=== PATIENT | female | born 1955 | race Caucasian/White ===

== ENCOUNTER 2016-08-02 09:32 | Emergency (ER) | payer OTHER ==
[~2016-08-02] VITALS: Ht 160 cm; Wt 75.0 kg
[2016-08-02 09:38] VITALS: BP 116/84; PULSE 95; RESP 16; O2SAT 91
[2016-08-02] MEDS ORDERED: 0.9% Sodium Chloride 1,000 ML IV ONE (10:22)
--- NOTE | 2016-08-02 10:22 | ED.REPORT ---
HPI-General Illness Date of Service Aug 02, 2016 ED Provider: Christine King MD A 61 year old female presents to the ED complaining of pain in right side of back onset 1 week ago. The patient has had a UTI onset at the beginning of this month, and began taking antibiotics on the 8th. The patient has regularly been throwing up their prescribed antibiotics. 1 week ago, the patient started feeling pain in the right side of their back. Associated symptoms include recent fever (max 101.8), and intermittent nausea, headache described as feeling like a pressure, difficultly eating, and difficulty urinating. She did not take any antibiotics this morning. Recent UTI, statred taking anibitoics on the . Has not completley gone away, bt feels better. First Urine sample was cultured at [facility]. Patient was given Cipro, trhew it up, was then given amoxicillin and threw that up too. No Hx of problems with antibiotics. Nursing Notes Stated Complaint: POSS KIDNEY INFECTION Chief Complaint: Female Abdominal Pain Nursing Notes Reviewed: Yes Allergies: Coded Allergies: No Known Allergies (Verified , 08/02/16) Uncoded Allergies: No Known Allergies (Allergy, Unknown, 05/22/04) Scheduled PRN Ondansetron (Zofran) 4 Mg Tablet 4 MG PO Q4H PRN PRN For Nausea General Time Seen by MD: 10:21 Chief Complaint Other (Right lower back pain.) Hx Obtained From: Patient Arrived By: Walk-in Onset Occurred: 1 week ago Symptom Duration: Intermittent Recent Healthcare: Recent doctor visit Similar Sx Previous: No Past Medical History Past Medical History skin cancer (not melanoma) Review of Systems Pain in right side of back. Difficulty with urination. Difficulty with eating. Full Review of Systems Constitutional: Reports: Fever (101.8 max) GI: Reports: Nausea (intermittent) Neurologic: Reports: Headache (pressure in head. ) Complete sys rev & neg: except as marked. Physical Exam Vital Signs Vital Signs Date Time Temp Pulse Resp B/P Pulse Ox O2 Delivery O2 Flow Rate FiO2 08/02/16 13:07 36.7 69 16 112/73 98 Room Air 08/02/16 09:38 37.2 95 16 116/84 91 Room Air Initial VS: Reviewed Head / Eyes: Normocephalic, PERRL ENT: Mucous membranes moist Respiratory: Breath sounds normal, Clear to auscultation, No respiratory distress Cardiovascular: Regular rate & rhythm, Heart sounds normal, Intact distal pulses Abdomen / GI: Soft Extremities: No swelling Skin: Warm, Dry, No cyanosis Neurologic: Alert, Oriented, Nonfocal Right CVA tenderness. Interpretation & Diagnostics Interpretation & Diagnostics: no culture was done on urine collected earlier this month to help guide treatment Lab Results Interpretation Result Diagram: 08/02/16 1055 08/02/16 1055 Test 08/02/16 10:40 08/02/16 10:55 Urine Color Yellow (YELLOW) Urine Appearance Hazy (CLEAR,HAZY) Urine pH 6.0 (5.0-8.0) Urine Specific Bond 1.010 (1.003-1.035) Urine Protein 30mg/dL (NEG,TRACE) Urine Glucose (UA) Negativemg/dL (NEGATIVE) Urine Ketones Negativemg/dL (NEGATIVE) Urine Occult Blood Small (NEGATIVE) Urine Nitrite Negative (NEGATIVE) Urine Bilirubin Negative (NEGATIVE) Urine Urobilinogen Normalmg/dL (NORMAL) Urine Leukocyte Esterase Trace (NEGATIVE) Urine RBC 0-2/hpf (0-2) Urine WBC 11-50/hpf (0-5) Urine Epithelial Cells Occasional/hpf (NONE-MOD) Urine Crystals None seen (NONE SEEN) Urine Bacteria Moderate/hpf (NONE-FEW) Urine Hyaline Casts None/lpf (NONE) Urine Granular Casts Occasional (NONE SEEN) Urine Waxy Casts None seen (NONE SEEN) Urine Red Blood Cell Casts None seen (NONE SEEN) Urine White Blood Cell Casts None seen (NONE SEEN) Urine Mucus Present (None Seen) Urine Trichomonas None seen (NONE SEEN) Urine Yeast None (NONE SEEN) Urinalysis Comment None Urine Culture Reflexed Indicated Hold Urine Received (Received) White Blood Count 7.6th/mm3 (3.8-10.1) Red Blood Count 3.99mil/mm3 (3.90-5.20) Hemoglobin 12.9g/dL (12.0-15.6) Hematocrit 38.5% (35.0-46.0) Mean Corpuscular Volume 96.5fL (81-100) Mean Corpuscular Hemoglobin 32.3pg (27.0-35.0) Mean Corpuscular Hemoglobin Concent 33.5% (32.0-37.0) Red Cell Distribution Width 12.1% (12.3-15.4) Platelet Count 142bil/L (150-400) Neutrophils (%) (Auto) 75.5% (40-74) Lymphocytes (%) (Auto) 15.2% (14-46) Monocytes (%) (Auto) 8.4% (4-12) Eosinophils (%) (Auto) 0.1% (0-5) Basophils (%) (Auto) 0.1% (0-3) Sodium Level 131mEq/L (134-144) Potassium Level 3.9mEq/L (3.5-5.2) Chloride Level 95mEq/L (97-108) Carbon Dioxide Level 22mmol/L (18-29) Blood Urea Nitrogen 17mg/dL (6-24) Creatinine 0.79mg/dL (0.57-1.00) Estimat Glomerular Filtration Rate 107mL/min (>59) Glucose Level 118mg/dL (60-99) Lactic Acid Level 0.9mmol/L (0.4-2.0) Calcium Level 9.6mg/dL (8.5-10.1) Total Bilirubin 0.7mg/dL (0.0-1.2) Aspartate Amino Transf (AST/SGOT) 21U/L (0-50) Alanine Aminotransferase (ALT/SGPT) 19U/L (0-32) Alkaline Phosphatase 51U/L (25-165) Troponin T < 0.010ug/L (0.0-0.011) Pro-B-Type Natriuretic Peptide 160.9pg/mL (0-287) Total Protein 7.3g/dL (6.4-8.4) Albumin 3.6g/dL (3.4-5.0) Procalcitonin 0.33ng/mL (0.00-0.08) Re-Eval/Medical Decision Source of Hx: Old records Time of Eval: 12:19 Re-Evaluation/Progress Note: Rechecked patient, explained test results, diagnosis, and plan for discharge. Patient understands and agrees with the plan. Counseled Regarding: Diagnosis, Lab results, Need for follow-up, When/why to return to ED Discharge & Departure Primary Impression: Pyelonephritis Ruled Out: Sepsis Disposition: Home Discharge Condition All VS Reviewed: Yes Condition: Improved Patient Instructions: Acute Pyelonephritis (ED) Additional Instructions: Your clinical exam and lab work suggests you have a developing kidney infection. It does not appear to be an overwhelming infection and you do not need to stay in the hospital or have additional IV antibiotics. Given 2 g of ceftriaxone today. I am going to suggest you finish the Augmentin that you were recently prescribed. I will also give you some nausea medicine should that continue to be an issue. We did culture your urine today. I did not find cultures done with your previous urine studies to suggest different antibiotics. I would expect to continue having fevers for 1-2 more days and then continuing improvement from there. I hope you feel better shortly. Please use Tylenol as needed for the low-grade headache and fevers. Thank you for coming in today Referrals: Huy Baez DO (PCP) Meliaibdaphnie Attestation Portions of this note were transcribed by Edgar Melendrez. I, Dr. King personally performed the history, physical exam and medical decision-making; I reviewed and confirmed the accuracy of the information in the transcribed note. Signed by: Jesica Zuñiga, 08/02/2016 1308. copies to: Huy Baez Shawna L MD Aug 02, 2016 10:22 Edgar Melendrez Aug 02, 2016 10:34
[2016-08-02] MEDS ORDERED: Ondansetron 2 mg/mL 2 mL Inj IVPUSH PRN (10:25)
[2016-08-02] MEDS ORDERED: cefTRIAXone Inj 2,000 MG in Dextrose 5% Minibag Plus 50 ML IV ONE (10:25)
[2016-08-02] MEDS ORDERED: HYDROmorphone 0.5 mg/0.5 mL iSecure Syringe IVPUSH PRN (10:25)
[2016-08-02] MEDS ORDERED: Pantoprazole 4 mg/mL 10 mL Inj IVPUSH ONE (10:40)
[2016-08-02 11:02] LABS: BASOPHILS % (AUTO) 0.1 % (0-3); EOSINOPHILS % (AUTO) 0.1 % (0-5); MONOCYTES % (AUTO) 8.4 % (4-12); Mean Corpuscular Hemoglobin 32.3 pg (27.0-35.0); Mean Corpuscular Volume 96.5 fL (81-100); NEUTROPHILS % (AUTO) 75.5 % (40-74); Platelet Count 142 bil/L (150-400)
[2016-08-02 11:19] LABS: APPEARANCE,URINE HAZY (CLEAR,HAZY); COLOR,URINE YELLOW (YELLOW); OCCULT BLOOD,URINE SMALL (NEGATIVE); UROBILINOGEN,URINE NORMAL (NORMAL)
[2016-08-02 11:40] LABS: TROPONIN T < 0.010 ug/L (0.0-0.011)
[2016-08-02] MEDS ORDERED: ONDA4TAB6 PO (13:00)
[2016-08-02 13:07] VITALS: BP 112/73; PULSE 69; RESP 16; O2SAT 98
== END 2016-08-02 13:08 | disposition home or self-care (01) ==
LOC: SED 09:55
DX: N12 Tubulo-interstitial nephritis, not specified as acute or chronic (principal); Z87.440 Personal history of urinary (tract) infections; Z85.828 Personal history of other malignant neoplasm of skin
CPT/HCPCS: 36415; 80053; 81000; 83605; 83880; 84145; 84484; 85025; 87040; 87077; 87086; 87088; 87186; 96365; 96375; 99285; J0696; J1170; J2405; J7030